=== PATIENT | female | born 1970 | race Caucasian/White ===

== ENCOUNTER 2018-12-29 15:56 | Emergency (ER) | payer BC ==
[~2018-12-29] VITALS: Ht 154.9 cm; Wt 67.1 kg
[2018-12-29 16:00] VITALS: BP_SYST 140
--- NOTE | 2018-12-29 16:00 | NUR ---
BROUGHT BACK TO BED #7 AND TRIAGED. REPORT GIVEN TO ANAIS
--- NOTE | 2018-12-29 16:11 | NUR ---
Patient is awake, alert, and oriented x4. Patient is complaining of upper left quadrant abdominal radiating to her back, made worse on palpation and movement. Patient denies nausea, vomiting, and diarrhea.
--- NOTE | 2018-12-29 16:30 | NUR ---
ER Dr. Medina at bedside examining patient.
[2018-12-29] MEDS ORDERED: NACL 0.9% 1,000 ML IV ONE (16:45)
[2018-12-29] MEDS ORDERED: KETOROLAC TROMETHAMINE 30 MG VIAL IVP ONE (16:45)
[2018-12-29] MEDS ORDERED: ONDANSETRON HCL 4 MG/2 ML VIAL IVP ONE (16:45)
--- NOTE | 2018-12-29 17:04 | NUR ---
Patient transported to radiology via wheelchair, accompanied by [employer] technician.
--- NOTE | 2018-12-29 17:14 | NUR ---
Returned from radiology, back to [facility].
[2018-12-29] MEDS ORDERED: LEVOFLOXACIN 500 MG TABLET PO ONE (18:00)
[2018-12-29 18:05] VITALS: BP_SYST 125
--- NOTE | 2018-12-29 18:05 | NUR ---
Patient given written and verbal discharge instructions and verbalizes understanding. ER MD discussed with patient the results and treatment provided. Patient in stable condition. ID arm band removed. IV catheter removed intact and dressing applied, no active bleeding. Rx of tramadol, cirpo, sulfamethoxazole/trimethroprim, motrin given. Patient educated on pain management and to follow up with PMD. Pain Scale 0/10. Opportunity for questions provided and answered. Medication side effect fact sheet provided.
== END 2018-12-29 18:05 | disposition home or self-care (01) ==
LOC: SED 15:56
DX: K57.92 Diverticulitis of intestine, part unspecified, without perforation or abscess without bleeding (principal)
CPT/HCPCS: 74176; 96374; 96375; 99284; J1885; J2405; J7030

== ENCOUNTER 2021-03-11 20:44 | Emergency (ER) | payer BC, SELFPAY ==
[~2021-03-11] VITALS: Ht 154.9 cm; Wt 64.4 kg
[2021-03-11 21:00] VITALS: BP_SYST 123; BP_SYST 144
--- NOTE | 2021-03-11 21:00 | NUR ---
Patient triaged and placed in waiting room. VSS and patient appears in no acute distress at this time. Accompanied by fam member, awaiting available bed, and MD notified of need for MSE.
--- NOTE | 2021-03-12 00:15 | NUR ---
CIARRA Mane examining patient in the waiting room.
[2021-03-12] MEDS ORDERED: MAG HYDROX/AL HYDROX/SIMETH 30 ML, DICYCLOMINE HCL 20 MG, LIDOCAINE VISCOUS 2% 15ML (PO... PO ONE ×3 (00:45)
[2021-03-12] MEDS ORDERED: ONDANSETRON HCL 4 MG/2 ML VIAL IVP ONE ×2 (00:45→03:00)
[2021-03-12] MEDS ORDERED: NACL 0.9% 1,000 ML IV ONE (00:45)
--- NOTE | 2021-03-12 01:20 | NUR ---
Patient to [facility] to [facility] for evaluation. Side rails up. Report given to Gopal GONCALVES.
[2021-03-12 01:30] LABS: BILIRUBIN,URINE NEGATIVE (NEGATIVE); BLOOD, URINE NEGATIVE (NEGATIVE); CLARITY/URINE CLEAR (CLEAR); COLOR,URINE YELLOW (YELLOW); GLUCOSE,URINE NEGATIVE (NEGATIVE); KETONES,URINE NEGATIVE (NEGATIVE); LEUKOCYTE ESTERASE ,URINE NEGATIVE (NEGATIVE); NITRITE, URINE NEGATIVE (NEGATIVE); PH,URINE 5.5 (5.0-8.0); PROTEIN URINE TRACE (NEGATIVE)
--- NOTE | 2021-03-12 01:30 | NUR ---
PT ARRIVED TO ER FOR COMPLAINTS OF N/V AND ABDOMINAL PAIN. N/V STARTED AT AROUND 1300 ON 03/11/21 AND ABDOMINAL PAIN STARTED ABOUT 5 HOURS AGO. STATES 03/04 PAIN NOW. PT IS NAUSEUS AND IS UNABLE TO HOLD ANYHTING DOWN. PT STATE SHE HASNT EATEN SINCE IT STARTED.[id number]
--- NOTE | 2021-03-12 01:40 | NUR ---
# 20 gauge angiocath placed to LAC. Use of asceptic technique. Opsite placed over site. Blood return noted. Flushed with 10 cc of normal saline. No evidence of infiltration noted. Patient tolerated well.
[2021-03-12 02:05] LABS: BACTERIA,URINE FEW /HPF (None Seen); MUCUS,URINE None Seen /LPF (None Seen); RBC,URINE 0-3 /HPF (0-3); WBC,URINE 0-3 /HPF (0-3)
[2021-03-12 02:23] LABS: BASOPHILS % (AUTO) 0.2 % (0.0-2.0); EOSINOPHILS % (AUTO) 0.2 % (0.0-4.0); HEMATOCRIT 40.4 % (36-48); HEMOGLOBIN 13.4 g/dL (12.0-16.0); LYMPHOCYTES # (AUTO) 0.5 K/uL (1.0-5.5); LYMPHOCYTES % (AUTO) 6.5 % (20.5-51.5); MEAN CORPUSCULAR HEMOGLOBIN 31 pg (27-31); MEAN CORPUSCULAR HGB CONC 33 % (32-36); MEAN CORPUSCULAR VOLUME 94 fL (79.0-98.0); MONOCYTES # (AUTO) 0.2 K/uL (0.0-1.0); MONOCYTES % (AUTO) 2.9 % (1.7-9.3); NEUTROPHILS # (AUTO) 7.3 K/uL (1.8-7.7); NEUTROPHILS % (AUTO) 90.2 % (40.0-70.0); PLATELET COUNT (AUTO) 233 K/uL (130-430); RED BLOOD CELL COUNT(AUTO) 4.31 MIL/uL (4.2-6.2); RED CELL DISTRIBUTION WIDTH 13.4 % (9.0-15.0); WHITE BLOOD COUNT (AUTO) 8.1 K/uL (4.8-10.8)
--- NOTE | 2021-03-12 02:25 | NUR ---
DR ASHER AT BEDSIDE SPEAKING WITH PT
[2021-03-12] MEDS ORDERED: HYDROmorphone 1 MG/ML INJ. CARTRIDGE IVP ONE (02:30)
[2021-03-12 02:31] LABS: CALCIUM 8.5 mg/dL (8.4-11.0); CREATININE 0.61 mg/dL (0.55-1.30); POTASSIUM 3.9 mmol/L (3.5-5.1)
[2021-03-12 02:37] LABS: TOTAL BILIRUBIN 0.7 mg/dL (0.0-1.0)
--- NOTE | 2021-03-12 02:54 | NUR ---
Patient continues to vomiting (velásquez color emesis approx 300ml), patient medicated as ordered w/ 2nd dose of zofran. Patient to keep npo. will observe for any adverse reaction. bed to low position sr up, continue to monitor.
[2021-03-12] MEDS ORDERED: ONDA-8 TL (03:13)
[2021-03-12] MEDS ORDERED: OMEP40CA20 PO (03:13)
[2021-03-12] MEDS ORDERED: ANT30 PO (03:13)
[2021-03-12] MEDS ORDERED: DICY10CA13 PO (03:13)
[2021-03-12] MEDS ORDERED: OMEPRAZOLE Non-Formulary 20 MG CAPSULE.DR PO ONE (03:15)
[2021-03-12] MEDS ORDERED: METOCLOPRAMIDE HCL 10 MG/2 ML VIAL IVP ONE (03:30)
[2021-03-12] MEDS ORDERED: PANTOPRAZOLE SODIUM 40 MG/VIAL (PROTONIX) IVP ONE (03:30)
[2021-03-12] MEDS ORDERED: PROCHLORPERAZINE EDISYLATE 10 MG/2 ML VIAL IVP ONE (03:30)
[2021-03-12] MEDS ORDERED: BENZTROPINE MESYLATE 2 MG/ 2 ML AMP IM ONE (03:30)
[2021-03-12] MEDS ORDERED: BENZTROPINE MESYLATE 2 MG/ 2 ML AMP IVP ONE (03:30)
--- NOTE | 2021-03-12 03:45 | NUR ---
PT STATES FEELS MUCH BETTER AFTER HER COMPEZINE, KEMAR, PROTONIX. PT STATES SHE IS READY TO LEAVE
[2021-03-12] MEDS ORDERED: PROC10TA13 PO ×2 (03:52)
[2021-03-12] MEDS ORDERED: PHE25 PO (03:55)
--- NOTE | 2021-03-12 04:00 | NUR ---
Patient given written and verbal discharge instructions and verbalizes understanding. ER MD discussed with patient the results and treatment provided. Patient in stable condition. ID arm band removed. IV catheter removed intact and dressing applied, no active bleeding. Rx of MYLANTA, DICYCLOMINE, OMEPRAZOLE, PROMETHAZINE given. Patient educated on pain management and to follow up with PMD. Pain Scale 2/10. Opportunity for questions provided and answered. Medication side effect fact sheet provided.
[2021-03-12 04:05] VITALS: BP_SYST 128
== END 2021-03-12 04:05 | disposition home or self-care (01) ==
LOC: SED 20:44
DX: K29.00 Acute gastritis without bleeding (principal); Z79.899 Other long term (current) drug therapy
CPT/HCPCS: 36415; 74018; 80053; 81000; 83690; 85025; 96361; 96374; 96375; 96376; 99285; C9113; J0515; J0780; J1170; J2001; J2405; J7030